=== PATIENT | female | born 1960 | race Caucasian/White ===

== ENCOUNTER → 2021-11-25 | Outpatient (CLI) | payer OTHER ==
[~2021-11-25] MED LIST: ATIVAN0.5 MG; CEFD300 PO; Norco 5-325 Ta1 EACH PO; OMEP20ER; OXYC5; TAMS.4ER PO; VALA500 PO
== END | disposition home or self-care (01) ==
LOC: LAB SHORT 07:25 → LAB 07:25 → EDSTATUS 10-03 11:55 → LAB FUT 10-03 11:55
DX: N20.0 Calculus of kidney (principal)
CPT/HCPCS: 81050

== ENCOUNTER → 2023-11-13 | Outpatient (CLI) | payer OTHER ==
[2023-11-13 14:23] LABS: Calcium, Urine 17.3 mg/dL (< 17.5); Calcium, Urine Calculation 484.4 mg/24hrs (42.0-353.0)
== END | disposition home or self-care (01) ==
LOC: LAB 08:00 → LAB SHORT 08:00
PROVIDERS: Physician Assistant Medical
DX: N20.0 Calculus of kidney (principal)
CPT/HCPCS: 81050; 82340

== ENCOUNTER → 2024-10-24 | Outpatient (CLI) | payer OTHER | LOC: LAB 16:51 → LAB SHORT 16:51 | DX: N39.0 Urinary tract infection, site not specified (principal) | CPT/HCPCS: 87086 ==

== ENCOUNTER → 2024-12-09 | Outpatient (CLI) | payer OTHER ==
[2024-12-16 11:06] LABS: CALCIUM, URINE - PER 24H 353 mg/d (100-250); CALCIUM, URINE - PER VOLUME 12.6 mg/dL; CHLORIDE, URINE - PER 24H 132 mmol/d (140-250); CHLORIDE, URINE - PER VOLUME 47 mmol/L; CITRIC ACID, URINE - PER 24H 804 mg/d (320-1240); CITRIC ACID,URINE - PER VOLUME 287 mg/L; CREATININE, URINE - PER 24H 1288 mg/d (500-1400); CREATININE, URINE - PER VOLUME 46 mg/dL; HOURS COLLECTED 24 hr; MAGNESIUM, URINE - PER VOLUME 4.7 mg/dL; MAGNESIUM, URINE PER 24H 132 mg/d (12-199); OXALATE, URINE - PER 24H 36 mg/d (13-40); OXALATE, URINE - PER VOLUME 13 mg/L; PHOSPHORUS, URINE - PER 24H 756 mg/d (400-1300); PHOSPHORUS, URINE - PER VOLUME 27 mg/dL; POTASSIUM, URINE - PER 24H 112 mmol/d (25-125); POTASSIUM, URINE - PER VOLUME 40 mmol/L; SODIUM, URINE - PER 24H 95 mmol/d (51-286); SODIUM, URINE - PER VOLUME 34 mmol/L; SULFATE, URINE - PER 24H 25 mmol/d (6-30); SULFATE, URINE - PER VOLUME 9 mmol/L; URIC ACID, URINE - PER 24H 568 mg/d (250-750); URIC ACID, URINE - PER VOLUME 20.3 mg/dL; URINE SUPERSATURATION INTERP Abnormal; URINE SUPERSATURATION, CAHPO4 3.26; URINE SUPERSATURATION, CAOX 5.23; URINE SUPERSATURATION, UA CALC 0.06
== END ==
LOC: LAB 07:23 → LAB SHORT 07:23
PROVIDERS: Internal Medicine Nephrology
DX: N20.0 Calculus of kidney (principal)
CPT/HCPCS: 81003; 81050; 82131; 82140; 82340; 82436; 82507; 82570; 83735; 83935; 83945; 84105; 84133; 84300; 84392; 84560